=== PATIENT | male | born 1995 ===

== ENCOUNTER 2021-04-02 07:36 | Day surgery (SDC) | payer OTHER ==
[2021-04-02] MEDS ORDERED: ULTRAM50 MG PO (11:34)
== END 2021-04-02 15:45 | disposition home or self-care (01) ==
LOC: CIR.AMB 07:36 → EDSEX 07:36 → CIR.AMB 11:30
PROVIDERS: ATTEND Surgery
DX: N47.1 Phimosis (principal); Z30.2 Encounter for sterilization